=== PATIENT | male | born 1935 | race Caucasian/White ===

== ENCOUNTER → 2018-10-16 | Outpatient (CLI) | payer MEDICARE ==
[~2018-10-16] VITALS: Ht 185.4 cm; Wt 83.5 kg
[~2018-10-16] MED LIST: ASP325T PO; ATEN1TAB3 PO; CATHETER FLUSH 10 ML SYR IV PRN; CEPH500C PO; COMBIGAN OD; DORZOLAMIDE; DORZOLAMIDE OD; HYDR-3454 PO; REGADENOSON 0.4 MG/5 ML SYR (LEXISCAN) IV ONE
[2018-10-16 09:13] VITALS: BP 146/88
--- NOTE | 2018-10-16 13:07 | STRESS TEST ---
DATE OF SERVICE: 10/16/2018 LEXISCAN MYOVIEW STRESS TEST REFERRING PHYSICIAN: Dr. Cote Baseline heart rate is 63. Baseline blood pressure 185/92. Baseline EKG is sinus rhythm with left bundle branch block. In summary, the patient was injected with 10.13 mCi of technetium-99 Myoview and the resting images were obtained. Then, the patient received 0.4 mg of Lexiscan followed by 30.9 mCi of technetium-99 Myoview. Throughout the test, there were no EKG changes. The resting and stress images were reviewed and compared in the short axis, horizontal long axis, and vertical long axis views. Review of the images showed diaphragmatic attenuation with decreased uptake involving the true apex, anteroapical and inferoapical segment with mild reversibility. SSS is 6, SDS 2, TID value 1.07. On the gated images, the left ventricle appeared to be in normal size with normal contractility. Calculated ejection fraction 61%. CONCLUSION: 1. The patient tolerated Lexiscan well. 2. Baseline left bundle branch block persisted throughout test. 3. Mild decreased uptake at the true apex and anteroapical and inferoapical segment with subtle reversibility. 4. Normal left ventricular size with normal contractility. Calculated ejection fraction 61%. Job ID: [id number] DocumentID: [id number] Dictated Date: 10/16/2018 11:40:28 [employer]visor [employer] Date: 10/16/2018 13:07:24 Dictated By: CHRISTEN CAMARGO MD
== END ==
LOC: CARD 07:29
PROVIDERS: ATTEND Internal Medicine Cardiovascular Disease
DX: I10 Essential (primary) hypertension (principal); I73.9 Peripheral vascular disease, unspecified; I44.7 Left bundle-branch block, unspecified; I08.3 Combined rheumatic disorders of mitral, aortic and tricuspid valves
CPT/HCPCS: 78452; 93017; 93306

== ENCOUNTER 2018-11-15 08:41 | Day surgery (SDC) | payer MEDICARE ==
[~2018-11-15] VITALS: Ht 185.4 cm; Wt 79.4 kg
[~2018-11-15 08:41] MED LIST changes: -CATHETER FLUSH 10 ML SYR IV PRN; -REGADENOSON 0.4 MG/5 ML SYR (LEXISCAN) IV ONE
[2018-11-15] MEDS ORDERED: HEParin 1000 UNIT/ML (10ML VIAL) FOR BOLUS ONE (08:58)
[2018-11-15] MEDS ORDERED: LIDOCAINE 1% INJ 20 ML 20 ML VIAL ONE (08:58)
[2018-11-15] MEDS ORDERED: NS IV 1000 ML 2,000 ML ONE (08:58)
[2018-11-15] MEDS ORDERED: NS IV 1000 ML 1,000 ML ONE (08:58)
[2018-11-15 10:08] VITALS: BP 183/97
[2018-11-15] MEDS ORDERED: NS IV 1000 ML 1,000 ML IV ONE (10:15)
[2018-11-15 10:23] LABS: HEMOGLOBIN 14.3 G/DL (13.3-17.7); MEAN PLATELET VOLUME 11.2 FL (7.4-10.4); RED CELL DISTRIBUTION WIDTH 13.7 % (10.0-14.5); WHITE BLOOD COUNT 6.6 10^3/uL (4.3-11.0)
[2018-11-15 10:27] LABS: PROTHROMBIN TIME PATIENT 13.3 SEC (12.2-14.7)
[2018-11-15 10:34] LABS: ALANINE AMINOTRANSFERASE 15 U/L (0-55); ALBUMIN 4.4 GM/DL (3.2-4.5); ALKALINE PHOSPHATASE 72 U/L (40-136); BILIRUBIN,TOTAL 0.6 MG/DL (0.1-1.0); BUN/CREATININE RATIO 16; CALCIUM 9.1 MG/DL (8.5-10.1); CARBON DIOXIDE 26 MMOL/L (21-32); CHLORIDE 104 MMOL/L (98-107); CHOLESTEROL 206 MG/DL (< 200); CREATININE SERUM 0.99 MG/DL (0.60-1.30); GFR ESTIMATED > 60; GLUCOSE 91 MG/DL (70-105); HDL CHOLESTEROL 31 MG/DL (40-60); POTASSIUM 3.9 MMOL/L (3.6-5.0); SODIUM 140 MMOL/L (135-145); TOTAL PROTEIN 7.9 GM/DL (6.4-8.2); TRIGLYCERIDES 129 MG/DL (<150); VLDL CHOLESTEROL 26 MG/DL (5-40)
[2018-11-15] MEDS ORDERED: DORZ10DR27 OD (10:42)
[2018-11-15] MEDS ORDERED: LISI-556 PO (10:42)
[2018-11-15] MEDS ORDERED: BRIM5DRO OD (10:42)
[2018-11-15] MEDS ORDERED: CLOP75TA69 PO (10:42)
[2018-11-15] MEDS ORDERED: GARL10002 PO (10:42)
[2018-11-15] MEDS ORDERED: ASPI-983 PO (10:42)
[2018-11-15] MEDS ORDERED: MULT-166 PO (10:44)
[2018-11-15] MEDS ORDERED: ATEN1TAB3 PO (10:44)
[2018-11-15] MEDS ORDERED: KRIL1CAP22 PO (10:45)
[2018-11-15] MEDS ORDERED: MIDAZOLAM 5 MG/5 ML (VERSED) VIAL ONE (10:51)
[2018-11-15] MEDS ORDERED: fentaNYL INJECTION 100 MCG/2 ML AMP ONE (10:51)
--- NOTE | 2018-11-15 11:00 | Diagnostic Imaging Report ---
INDICATION: Atherosclerotic disease. COMPARISON: No prior exams for comparison. FINDINGS: There is symmetrical air trapping and changes likely owing to COPD. There is some scarring in the pulmonary apices. No evidence for failure, pneumonia, effusion, or pneumothorax. No free air beneath the diaphragms. IMPRESSION: Chronic emphysematous changes and some biapical scarring. No acute appearing cardiopulmonary abnormality is identified. Dictated by: Dictated on workstation # [id number]
--- NOTE | 2018-11-15 11:09 | Cardiac Procedure Note-CS/ASA ---
Pre-Procedure Note Pre-Op Procedure Note H&P Reviewed The H&P was reviewed, patient examined and no changes noted. Date H&P Reviewed: Nov 15, 2018 Time H&P Reviewed: 11:09 Conscious Sedation Pre-Proced Time 11:09 ASA Score 3 For ASA 3 and 4: Consider anesthesia and medical clearance. Also, for patients with a history of failed moderate sedation consider anesthesia. Airway Lungs Heart ASA score ASA 1: a normal healthy patient ASA 2: a patient with a mild systemic disease (mid diabetes, controlled hypertension, obesity x ASA 3: a patient with a severe systemic disease that limits activity (angina , COPD, prior Myocardial infarction) ASA 4: a patient with an incapacitating disease that is a constant threat to life (CHF, renal failure) ASA 5: a moribund patient not expected to survive 24 hrs. (ruptured aneurysm) ASA 6: a declared brain- patient whose organs are being harvested. For emergent operations, add the letter E after the classification Mallampati Classification Grade 3 Sedation Plan Analgesia, Amnesia, Plan communicated to team members, Discussed options with patient/fam, Discussed risks with patient/fam The patient is an appropriate candidate to undergo the planned procedure, sedation, and anesthesia. The patient immediately re-assessed prior to indication. CHRISTEN CAMARGO MD Nov 15, 2018 11:09
[2018-11-15] MEDS ORDERED: meTOprolol 5 MG/5 ML (LOPRESSOR) VIAL ONE (11:13)
[2018-11-15] MEDS ORDERED: NS IV 1000 ML 1,000 ML IV SCH (11:42)
[2018-11-15] MEDS ORDERED: ATOR40TA PO (11:45)
[2018-11-15] MEDS ORDERED: PATIENT MAY USE OWN MEDS, ALL PO SCH (11:45)
--- NOTE | 2018-11-15 11:46 | Discharge Inst-Post CATH ---
Discharge Inst-CATH/EP Post Cardiac Cath/EP D/C Inst Follow Up/Plan Appointment with Dr. CAMARGO's office in 4 weeks CARDIAC CATH DISCHARGE INSTRUCTIONS *Hold Metformin for 48 hours post heart cath. ACTIVITY * Go Home directly and rest. * Limit activity of the leg (or wrist if it was used) for 7 days including aerobics, swimming, jogging, bicycling, etc. * Restrict stair-climbing for 7 days if possible, if not, climb up with your non -cath leg, then bring together on the same step. * Avoid lifting, pushing, pulling or excessive movement of the affected extremity for 7 days. * Customary sexual activity may be resumed after 2 days-use caution not to use a position that strains or causes pain to the affected extremity. * No driving for 24 hours. * NO SMOKING. * Avoid straining for bowel movements for 7 days. * Gentle walking on level ground is allowed. * Returning to work will depend on the type of procedure and the results. Your doctor will discuss this with you. CALL YOUR DOCTOR FOR ANY OF THE FOLLOWING: *If bleeding from the puncture site occurs- Apply gentle pressure to site with clean cloth and call your doctor or EMS. * If a knot or lump forms under the skin, increases in size, or causes pain. * If bruising appears to be worsening or moving further down your leg instead of disappearing. * Temperature above 101 F. CARE OF YOUR GROIN INCISION; * Bruising or purple discoloration of the skin near the puncture site is common. * You may shower only, no bathtub bathing for 5 days. Be careful to avoid slipping as your leg may feel stiff. * If a closure device was used on your femoral artery, please see the attached guide regarding care of the device and your leg. * Leave the dressing on, until removed by office staff. CARE OF YOUR WRIST INCISION; * Bruising or purple discoloration of the skin near the puncture site is common. * You may shower. * DO NOT submerge wrist. * Leave dressing on, until removed by office staff.. CHRISTEN CAMARGO MD Nov 15, 2018 11:46
--- NOTE | 2018-11-15 11:51 | Cardiac Cath Report ---
Cardiac Cath Report Physician (s)/Activity Manager (s) Physician CHRISTEN CAMARGO MD Pre-Procedure Diagnosis Pre-Procedure Diagnosis: coronary artery disease, peripheral arterial disease Post-Procedure Note Procedure Start Date: Nov 15, 2018 Name of Procedure: left heart catheterization Aortic root angiogram Abdominal aortogram with bilateral runoff Findings/Procedure Note PROCEDURE NOTE: After explaining the procedure to the patient, all pros and cons were explained , all questions were answered. The patient signed the consent and then he was placed on the cardiac catheterization laboratory. Groin was prepped SL fashion local anesthesia was used. Sheath placed in the right femoral artery. Kateryna right and left catheter were used to access the coronary system. Pigtail was used to access the left ventricular cavity. Left ventriculogram was done Aortic aortic root angiogram was done then the pigtail catheter was placed in the abdominal aorta above the renal artery and runoff to the lower extremity was then At the end of the procedure the sheath was removed. Closure device with abdominal aortogram was used FINDINGS: Hemodynamics LV 150/22 and diastolic pressure of 22 Aorta 149/71 mean of 104 ANATOMY: Left Main has mild disease Left Anterior Descending is heavily calcified artery with long moderate to severe stenosis proximally, an area of stepdown with severe stenosis at the midportion Left Circumflex is moderate in size with ostial 60 percent stenosis Right Coronory Artery is large dominant artery with diffuse ectasia and one area at the midportion with severe stenosis LV Gram was done showing normal left ventricular size with normal interactive the estimated ejection fraction 60 percent Aorta evaluation done with aortic root angiogram which showed prominent aortic root and ascending aorta, no dissection or aneurysm, origin of the great vessels of the neck showed some calcification, Abdominal aortogram with bilateral runoff: Diffuse atherosclerotic disease, hypertensive changes in the abdominal aorta, renal arteries are calcified with mild disease nonobstructive disease, sick. And inferior mesenteric arteries are normal, bilateral leg runoff showed good flow down to the trifurcation, below the trifurcation there is a single vessel runoff CONCLUSION: 1. Heavily calcified coronary artery disease with multivessel disease including severe proximal and mid LAD, severe midright coronary artery and moderate ostial circumflex artery 2. Normal left ventricular size and systolic function estimated ejection fraction 60 percent 3. Hypertensive changes in the thoracic aorta and aortic root with no dissection or aneurysm, prominent aortic root and ascending aorta 4. Hypertensive changes in the abdominal aorta 5. Good runoff on both sides, below the trifurcation there is only single vessel patent down to the ankle bilaterally DISCUSSION AND RECOMMENDATION: I will refer him for evaluation for bypass surgery as an outpatient, otherwise will consider high risk intervention on the LAD and possible right coronary artery, regarding his peripheral arterial disease, I will continue to monitor closely and consider intervention if patient developed critical limb ischemia Anesthesia Type: Conscious Sedation Estimated blood loss (mL): 30 ml Contrast Amount: 140 ml Total Radiation Dose: 563 mGy Post-Procedure Diagnosis Post-operative diagnosis: Chest pain Coronary artery disease Peripheral arterial disease Hypertension Hyperlipidemia CHRISTEN CAMARGO MD Nov 15, 2018 11:51
[2018-11-15 12:10] VITALS: BP 153/86
[2018-11-15 12:15] VITALS: BP 153/86
[2018-11-15 13:55] VITALS: BP 165/105
[2018-11-15 14:25] VITALS: BP 143/87
[2018-11-15 16:00] VITALS: BP 158/85
== END 2018-11-15 16:30 | disposition home or self-care (01) ==
LOC: CATH 08:41 → ICU 12:37 → CATH 16:30
PROVIDERS: ATTEND Internal Medicine Cardiovascular Disease
DX: R07.9 Chest pain, unspecified (principal); I25.10 Atherosclerotic heart disease of native coronary artery without angina pectoris; I73.9 Peripheral vascular disease, unspecified; I10 Essential (primary) hypertension; E78.5 Hyperlipidemia, unspecified; I65.23 Occlusion and stenosis of bilateral carotid arteries; I44.7 Left bundle-branch block, unspecified
CPT/HCPCS: 36415; 71045; 80053; 80061; 85027; 85610; 85730; 87081; 93458; 93567

== ENCOUNTER → 2020-04-23 | Outpatient (CLI) | payer MEDICARE ==
[~2020-04-23] VITALS: Ht 185 cm; Wt 79.0 kg
[~2020-04-23] MED LIST changes: +ASPI-983 PO; +ATOR40TA PO; +BRIM5DRO OD; +CATHETER FLUSH 10 ML SYR IV PRN; +CLOP75TA69 PO; +DORZ10DR27 OD; +GARL10002 PO; +KRIL1CAP22 PO; +LISI-556 PO; +MULT-166 PO; +REGADENOSON 0.4 MG/5 ML SYR (LEXISCAN) IV ONE
[2020-04-23 12:50] VITALS: BP 173/100
--- NOTE | 2020-04-23 14:32 | Cardiology Stress Test Report ---
Stress Test Report Date of Procedure/Referring: Date of Procedure: Apr 23, 2020 PCP Christen Mattson MD Admitting Physician Chucky Cote MD Indications: Hypertension Baseline Heart Rate: 72 Baseline Blood Pressure: Blood Pressure Systolic: 173 Blood Pressure Diastolic: 100 Baseline Vitals Vital Signs Date Time Temp Pulse Resp B/P (MAP) Pulse Ox O2 Delivery O2 Flow Rate FiO2 04/23/20 12:50 72 173/100 (124) 98 Baseline EKG: Baseline EKG: normal sinus rhythm, left bundle branch block Summary After explaining the procedure to the patient, he signed a consent and then brought to the stress nuclear laboratory. Patient received 0.4 mg Lexiscan for stress test, ECG, heart rate and blood pressure were monitored continuously. Resting and stress dose of radio tracer were injected, imaging was acquired and reviewed in short axis, horizontal long axis and vertical long axis views. TID: 1.06 SSS: 3 SDS: 1 EF: 60 1. Patient tolerated Lexiscan well 2. Baseline left bundle branch block persisted during test 3. Diaphragmatic attenuation with no significant ischemia or infarction on SPECT images 4. Normal left ventricular size, EF 60 percent CHRISTEN MATTSON MD Apr 23, 2020 14:32
== END ==
LOC: CARD 11:13
PROVIDERS: ATTEND Internal Medicine Cardiovascular Disease
DX: I08.3 Combined rheumatic disorders of mitral, aortic and tricuspid valves (principal); I73.9 Peripheral vascular disease, unspecified; E78.2 Mixed hyperlipidemia; I44.7 Left bundle-branch block, unspecified; I10 Essential (primary) hypertension; I65.23 Occlusion and stenosis of bilateral carotid arteries; J98.6 Disorders of diaphragm
CPT/HCPCS: 78452; 93017; 93306; A9502